=== PATIENT | male | born 1955 | race Two or more races ===

== ENCOUNTER → 2024-07-17 | Outpatient (CLI) | payer OTHER, SELFPAY ==
--- NOTE | 2024-07-17 16:00 | XR_ITS ---
Examination: CT chest, without intravenous contrast. Sagittal and coronal 2-D reconstructions. Exam date and time: July 17, 2024 1631 hrs. Indications: Nicotine dependence, smoking history 25 years CTDI:vol (mGy) 15.44 DLP: (mGycm) 583 Technique: Multiple 3.0 mm axial sections of the chest to been obtained. Bone and lung density settings are obtained. Sagittal and coronal 2-D reconstructions have been obtained. Low dose protocols were performed. One or more of the following dose reduction techniques were used; automated exposure control, adjustment of the mA and/or KV according to patient size, use of iterative reconstruction technique. Findings: No thoracic aortic aneurysm dilatation Pulmonary artery segments are not enlarged No paratracheal tracheobronchial or bronchopulmonary adenopathy Heavy calcification left anterior descending left circumflex coronary arteries No pneumonia, pulmonary edema, pleural disease or pulmonary nodules No visualized liver or splenic lesion Contracted gallbladder Impression: No mediastinal lymphadenopathy No pneumonia, pulmonary edema, pleural disease or pulmonary nodules Advanced degenerative disc disease T7-T8 with cortical erosions contiguous endplates, consider osteomyelitis discitis Recommend MRI thoracic spine follow-up pre and postcontrast
== END | disposition home or self-care (01) ==
PROVIDERS: Referring Provider Family Medicine; Visit Provider Family Medicine
DX: Z12.2 Encounter for screening for malignant neoplasm of respiratory organs (principal); M51.34 Other intervertebral disc degeneration, thoracic region; M46.24 Osteomyelitis of vertebra, thoracic region
CPT/HCPCS: 71271

== ENCOUNTER → 2024-10-27 | Outpatient (CLI) | payer OTHER, SELFPAY ==
--- NOTE | 2024-10-27 12:00 | XR_ITS ---
Examination: MRI thoracic spine without contrast Date and time of exam: October 27, 2024 1503 hours Technique: Multiple MRI axial and sagittal sections thoracic spine. Sagittal T2-weighted images, TR 3500, TE 118 T1 weighted transverse sections, TR 688 T8.5, T2-weighted sagittal sections T1 weighted sagittal sections TR 621, TE 30 T2 axial sections, TR 4, 190, TE 84. Indications:: Back pain 25 years FINDINGS: Satisfactory alignment thoracic vertebral bodies No thoracic fracture Diffuse thoracic disc desiccation Moderate to advanced disc narrowing T7-T8 2 mm central disc bulge T7-T8 which does not impinge upon the thoracic cord No localized enlargement thoracic cord IMPRESSION: No thoracic fracture Moderate to advanced degenerative disc disease T7-T8 T7-T8 2 mm central disc bulge
== END | disposition home or self-care (01) ==
LOC: SMRI 11:41
PROVIDERS: PCP Family Medicine; Referring Provider Family Medicine; Visit Provider Family Medicine
DX: M51.34 Other intervertebral disc degeneration, thoracic region (principal)
CPT/HCPCS: 72157; A9579

== ENCOUNTER → 2025-02-18 | Outpatient (CLI) | payer OTHER, SELFPAY ==
--- NOTE | 2025-02-18 08:45 | XR_ITS ---
Examination: Ultrasound abdominal aorta TECHNIQUE: Grayscale sonographic images abdominal aorta Date and time: February 18, 2025 0846 hours INDICATIONS: Smoking history 50 years findings: Transverse dimension proximal aorta 2.6 cm mid aorta 1.8 cm distal aorta 1.7 cm right iliac 1.3 cm left iliac 1.3 cm IMPRESSION: Negative for abdominal aortic aneurysm
== END | disposition home or self-care (01) ==
PROVIDERS: PCP Family Medicine; Referring Provider Family Medicine; Visit Provider Family Medicine
DX: Z13.6 Encounter for screening for cardiovascular disorders (principal)
CPT/HCPCS: 76770